=== PATIENT | male | born 1995 | race Caucasian/White ===

== ENCOUNTER 2018-12-11 17:14 | Inpatient (IN) ==
[2018-12-11 19:12] LABS: BASO# 0.02 X1000 (0.0-0.2); BASO% 0.2 % (0.0-0.8); EOS# 0.32 X1000 (0.0-0.7); EOS% 3.5 % (0.0-10.0); HEMATOCRIT 42.8 % (42.0-52.0); HEMOGLOBIN 14.9 g/dL (14.0-18.0); LYMPH% 34.1 % (20.5-51.1); MCH 31.6 PG (27-31); MCHC 34.8 g/dL (33-37); MCV 90.7 FL (81-99); MONO# 0.67 X1000 (0.11-0.59); MONO% 7.4 % (1.7-9.3); MPV 11.1 FL (7.4-10.4); NEUT# 4.98 X1000 (1.4-6.5); NEUT% 54.8 % (42.2-75.2); PLT 242 X1000 (130-400); RBC 4.72 XMIL (4.7-6.1); RDW 12.6 % (11.5-14.5); WBC 9.09 X1000 (4.8-10.8)
[2018-12-11 19:27] LABS: AGAP 13; ALB/GLOB RATIO 2.1; ALBUMIN 4.6 g/dL (3.5-5.0); ALKALINE PHOSPHATASE 97 U/L (32-122); BUN 18 mg/dL (8-22); CALCIUM 9.4 mg/dL (8.8-10.2); CHLORIDE 101 mmol/L (98-107); COSMO 280; CREATININE 0.8 mg/dL (0.7-1.2); ESTIMATED GFR > 60; GLUCOSE 109 mg/dL (70-104); GOT 14 U/L (10-34); GPT 10 U/L (10-44); POTASSIUM 3.7 mmol/L (3.5-5.1); SODIUM 139 mmol/L (136-145); TCO2 25 mmol/L (25-35); TOTAL BILIRUBIN 0.75 mg/dL (0.20-1.00); TOTAL PROTEIN 6.8 g/dL (6.3-8.3)
--- NOTE | 2018-12-11 20:59 | Diag Imaging Result Doc PS360 ---
EXAM: CT HEAD/C-SPINE W/O CONTRAST INDICATION: bilateral paralysis of upper and lower extremities TECHNIQUE: This exam was performed using automated exposure control, adjustment of mA or kV according to patient size, and/or use of iterative reconstruction technique. COMPARISON: None. FINDINGS: Head: There is no definite acute infarct given the limited sensitivity of CT versus MRI. There is no discrete intracranial mass, mass effect, or intracranial hemorrhage. The surrounding soft tissues are essentially unremarkable. The calvaria is intact. C-spine: The central canal appears to be grossly patent. There is no discrete fracture, subluxation, or intrinsic osseous lesion. The surrounding soft tissues are essentially unremarkable. IMPRESSION: 1.No evidence of acute intracranial pathology. 2.No evidence of fracture or other definite acute C-spine injury. Electronically signed by Pramod Villavicencio 12/11/2018 8:57 PM
[2018-12-11] MEDS ORDERED: TORADOL IV ONE (21:11)
[2018-12-11] MEDS ORDERED: VALIUM PO ONE (21:17)
[2018-12-11] MEDS ORDERED: ZOFRAN IV PRN (22:53)
[2018-12-11] MEDS ORDERED: TYLENOL PO PRN (22:53)
[2018-12-12] MEDS: LOVENOX SUBQ SCH ×2 (01:09→22:29)
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
[2018-12-12 08:01] LABS: VITAMIN D 25 HYDROXY 30.2 NG/DL
--- NOTE | 2018-12-12 08:27 | EKG Report ---
Test Performed on : 12/11/2018 6:48:18 PM Test Reason : WEAKNESS Blood Pressure : / mmHG Vent. Rate : 068 BPM Atrial Rate : 068 BPM P-R Int : 000 ms QRS Dur : 108 ms QT Int : 394 ms P-R-T Axes : 000 087 036 degrees QTc Int : 418 ms Accelerated Junctional rhythm. Incomplete right bundle branch block Nonspecific ST and T wave abnormality Abnormal ECG When compared with ECG of 17-MAR-2018 12:17, Junctional rhythm. has replaced Sinus rhythm. Nonspecific T wave abnormality now evident in Lateral leads Unconfirmed Result
--- NOTE | 2018-12-12 14:55 | PROGRESS NOTE ---
DATE: 12/12/2018 SUBJECTIVE: The patient reports mild neck pain. He reports that he is not able to move both lower extremities. He reports that the weakness comes and goes. Not able to tell me for what period of time. He is not able to move toes. He is able to control his bowel movement and bladder. OBJECTIVE: Vital signs: Temperature 97.8, heart rate 72, respiratory rate 18, blood pressure 111/62, O2 saturation 98% on room air. General examination: This is a 23-year-old male lying in bed in no acute distress. HEENT: Head is normocephalic and atraumatic. Neck: No JVD noted. No carotid bruit. No lymphadenopathy. No thyromegaly. Cardiovascular exam: S1, S2 heard. No murmurs, gallops, or rubs. Regular rate and rhythm. Respiratory exam: Clear bilaterally to auscultation. No work of breathing or using accessory muscles. Abdomen: Soft, nontender to palpation. Bowel sounds present. No organomegaly. Extremities: No clubbing, cyanosis, or edema. Peripheral pulses present in both legs. Neurological exam: The patient has 4/5 hmny-xt-nathtzym strength in both upper extremities but lower extremities he reports not able to move. He cannot raise them against gravity or not even drag any of his foot in the bed. He can move his head, shrug his shoulders. LABORATORY DATA: CBC and BMP unremarkable from yesterday. ASSESSMENT AND PLAN: 1. Intermittent lower extremity weakness. According to him, this has been going on for the last few years. He reports had some workup for this problem but it was not possible to find out the reason. The patient does have history of mental illness, depression, and anxiety. I do not know exactly what his diagnosis are. In any case considering this progressive weakness, I prefer to order an MRI of the brain and also lumbosacral MRI too and see what it shows. Neurology has been consulted for further recommendations. 2. Depression and anxiety. Will continue with home medication. 3. Muscle spasm. The patient has been given Toradol and Valium in the ER. Will continue to provide more medication if needed. cc: Wagner Espinal MD
--- NOTE | 2018-12-12 18:22 | PROVIDER DOCUMENTATION ---
This chart was entered by Violet Villavicencio Scribe, acting as scribe for Barbara Reyes MD. HPI-General Adult <SusannePerez OrtizVeto - Last Filed: 12/11/18 22:33> - General Source: patient - History of Present Illness -Gen Adult Nature of Presenting Problems: 23 yom presents to er w/cc pt arrived via [facility] for generalized muscle weakness. pt sts he has had muscle weakness for years but has progressively gotten worse. pt has been able to work but couldn't walk today. pt can't lift bilat arms or legs. pt is able to control BM's and bladder. denies fever, chills and cp. <Barbara Reyes - Last Filed: 12/12/18 18:23> - General Chief Complaint: Weakness Stated Complaint: lower extremity weakness/numbness Time Seen by Provider: 12/11/18 18:27 Allergies/Adverse Reactions: Patient Allergies Allergy/AdvReac Type Severity Reaction Status Date / Time nabumetone [From Relafen] AdvReac Intermediate NAUSEA Verified 05/25/14 20:01 Home Medications: Home Medication List Medication Instructions Recorded Confirmed Last Taken Type Ibuprofen 800 mg PO Q6H PRN PRN #20 tab 07/26/18 Unknown Rx Methocarbamol [Robaxin-750] 750 mg PO BID PRN #20 tab 08/20/18 Unknown Rx Buspirone [Buspar] BID 12/12/18 Unknown History Citalopram [Celexa] 20 mg PO 12/12/18 Unknown History Meloxicam [Mobic] 15 mg PO 12/12/18 Unknown History Review of Systems - Adult - REVIEW OF SYSTEMS - ADULT Constitutional: reports: no symptoms reported. denies: chills, fever Eyes: reports: no symptoms reported Ears, Nose, Mouth & Throat: reports: no symptoms reported Cardiovascular: reports: no symptoms reported. denies: chest pain Respiratory: reports: no symptoms reported Gastrointestinal: reports: no symptoms reported Genitourinary: reports: no symptoms reported Musculoskeletal: reports: see HPI, muscle weakness (generalized). denies: back pain, frequent leg cramps, joint pain Integumentary: reports: no symptoms reported Neurological: reports: no symptoms reported Psychiatric: reports: no symptoms reported Endocrine: reports: no symptoms reported Hematologic/Lymphatic: reports: no symptoms reported Allergic/Immunologic: reports: no symptoms reported All Other Systems: Reviewed and Negative <Barbara Reyes - Last Filed: 12/12/18 18:23> Past History - Adult - PAST MEDICAL HISTORY-ADULT Review of Records: reports: Old Records Reviewed, Nursing Assessment Review, Medications Reviewed, Social history reviewed & non-contributory. Major Childhood Illnesses: reports: denies history Cardiovascular: reports: denies history Respiratory: reports: denies history Gastrointestinal: reports: denies history Obstetrical/Gynecological: reports: denies history Genitourinary: reports: denies history Musculoskeletal: reports: denies history Neurological: reports: denies history Psychiatric: reports: anxiety, depression, other (ADHD) Endocrine/Immune: reports: denies history Other Conditions: reports: denies history - PRIOR SURGERIES/PROCEDURES Surgical/Procedure History: reports: reviewed, not pertinent, other (brown recluse bite) - IMMUNIZATION STATUS Childhood Immunizations: See Nurse Assessment Flu Vaccine: See Nurse Assessment - FAMILY HISTORY Family History: reviewed, not pertinent - SOCIAL HISTORY Smoking: other (former) Substance Use: none/never <Barbara Reyes - Last Filed: 12/12/18 18:23> Physical Exam-General - PHYSICAL EXAM-ADULT Initial Vital Signs Reviewed: Yes - CONSTITUTIONAL General Appearance: alert, mild distress. negative: slow to respond, obtunded, combative - EYES Eyes: PERRL/EOMI, pink conjunctivae - HEAD, EARS, NOSE, MOUTH & THROAT HENMT: normocephalic/atraumatic, moist mucous membranes, normal ENT inspection - NECK Neck: non-tender, full range of motion, supple, normal inspection - RESPIRATORY Respiratory: chest non-tender, lungs clear, normal breath sounds - CARDIOVASCULAR Cardiovascular: normal peripheral pulses, regular rate, rhythm - GASTROINTESTINAL (ABDOMEN) Abdominal Exam: normal bowel sounds, non tender, soft - MUSCULOSKELETAL Back Exam: normal inspection, no CVA tenderness, no vertebral tenderness Extremity: non-tender, other (pt cannot lift bilat arms or legs. 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 negative: normal range of motion, normal inspection, calf tenderness, deformity, pulse deficit Peripheral Pulses: radial (R): 2+, radial (L): 2+ - SKIN Integumentary: normal color, normal turgor, warm/dry - NEUROLOGIC Neurologic: grossly normal, no motor/sensory deficits - PSYCHIATRIC Psych/Mental Status: normal mood/affect, normal thought content, normal thought process, oriented x 3 <Barbara Reyes - Last Filed: 12/12/18 18:23> Progress - PLAN OF CARE/RESULTS Progress/Plan/Lab Results: Vital Signs - 8 hr 12/11/18 18:14 12/11/18 18:39 12/11/18 18:40 Temperature 97.9 F Pulse Rate 78 Respiratory Rate 18 Blood Pressure 133/90 135/84 O2 Sat by Pulse Oximetry 96 97 97 12/11/18 18:50 12/11/18 18:55 12/11/18 19:00 Temperature Pulse Rate 72 74 Respiratory Rate 19 21 Blood Pressure 136/87 O2 Sat by Pulse Oximetry 99 100 98 12/11/18 19:10 12/11/18 19:20 12/11/18 19:30 Temperature Pulse Rate 70 84 83 Respiratory Rate 18 15 19 Blood Pressure O2 Sat by Pulse Oximetry 99 100 99 12/11/18 19:31 12/11/18 19:40 12/11/18 19:50 Temperature Pulse Rate 73 76 73 Respiratory Rate 23 16 17 Blood Pressure 128/83 O2 Sat by Pulse Oximetry 100 99 100 12/11/18 20:00 12/11/18 20:01 12/11/18 20:10 Temperature Pulse Rate 71 74 71 Respiratory Rate 24 16 12 Blood Pressure 131/84 O2 Sat by Pulse Oximetry 97 99 100 12/11/18 20:29 12/11/18 20:30 Temperature Pulse Rate 79 81 Respiratory Rate 19 12 Blood Pressure O2 Sat by Pulse Oximetry 100 99 Laboratory Results - last 24 hr 12/11/18 12/11/18 18:54 18:54 WBC 9.09 RBC 4.72 Hgb 14.9 Hct 42.8 MCV 90.7 MCH 31.6 H MCHC 34.8 RDW Std Deviation 12.6 Plt Count 242 MPV 11.1 H Immature Gran % (Auto) 0.0 Neut % (Auto) 54.8 Lymph % (Auto) 34.1 Mower % (Auto) 7.4 Eos % (Auto) 3.5 Baso % (Auto) 0.2 Immature Gran # (Auto) 0.00 Neut # (Auto) 4.98 Lymph # (Auto) 3.10 Mower # (Auto) 0.67 H Eos # (Auto) 0.32 Baso # (Auto) 0.02 Sodium 139 Potassium 3.7 Chloride 101 Carbon Dioxide 25 Anion Gap 13 BUN 18 Creatinine 0.8 Estimated GFR/1.73 m2 > 60 BUN/Creatinine Ratio 23 Glucose 109 H Calculated Osmolality 280 Calcium 9.4 Total Bilirubin 0.75 AST 14 ALT 10 Alkaline Phosphatase 97 Total Protein 6.8 Albumin 4.6 Globulin 2.2 Albumin/Globulin Ratio 2.1 Orders Category Date Time Status Saline Loc NOW Care 12/11/18 18:28 Active Saline Loc NOW Care 12/11/18 18:[address] HEAD/C-SPINE W/O CONTRAST [CT] Stat Exams 12/11/18 18:27 Completed CBC WITH DIFF [HEME] Stat Lab 12/11/18 18:54 Completed COMPREHENSIVE METABOLIC PANEL [CHEM] Stat Lab 12/11/18 18:54 Completed Ketorolac [Toradol] Med 12/11/18 21:11 Discontinued 30 mg IV NOW ONE Result Diagrams: 12/11/18 18:54 12/11/18 18:54 - REASSESSMENT Reassessment #1 Status: improving (muscle spasm of neck improved. Patient reports not being able to move his legs or arms. On exam strenthg 2/5, sensation intact. 2+ bilat Pat reflexes. Discussed with hospitalist with plan for admission.) <Perez Skinner - Last Filed: 12/11/18 22:33> - PLAN OF CARE/RESULTS Progress/Plan/Lab Results: Vital Signs - 8 hr 12/11/18 18:14 Temperature 97.9 F Pulse Rate 78 Respiratory Rate 18 Blood Pressure 133/90 O2 Sat by Pulse Oximetry 96 Result Diagrams: 12/11/18 18:54 12/11/18 18:54 - EKG 1 Time of EKG reading by physician:: 18:48 EKG Read and Signed by:: Barbara Reyes EKG Interpretation (*Must complete 3 of following elements*): Abnormal Rate: 68 Rhythm: Accelerated Junctional rhythm QRS: RBB (incomplete) ST Wave: non-specific ST changes (nonspecific st and t wave abnormality) - CHANGE OF SHIFT REPORT (ED Provider) 1 Report Given and Care Transferred to:: Dr Skinner Time of Transfer: 19:00 Items Pending: Labs, CT/MRI Results <Barbara Reyes - Last Filed: 12/12/18 18:23> Departure - Departure Date of Disposition Decision: 12/11/18 Time of Disposition Decision: 22:35 Certified Medical Emergency: Emergent - Critical Care Note This patient required my direct & personal management of CC.: No <Perez Skinner - Last Filed: 12/11/18 22:33> - Departure Certified Medical Emergency: Emergent - Critical Care Note This patient required my direct & personal management of CC.: No <Barbara Reyes - Last Filed: 12/12/18 18:23> - Departure DIAGNOSIS: Weakness, Muscle spasm Disposition: ADMITTED INPATIENT 09 Condition: Good Attestation - Physician/ ARLEN Attestation Patient care was provided by Advanced Practice Provider:: No The physician spent face to face time with patient:: Yes Advanced Practice Provider documentation review:: Supervising physician onsite and consulted in the evaluation and care of this patient. The physician did have a face to face encounter with the patient. <Barbara Reyes - Last Filed: 12/12/18 18:23> This chart was documented by the indicated scribe, (Violet Villavicencio Scribe) and accurately reflects the services I performed and decisions made by me, Barbara Reyes MD, as attested by the provider's signature.
--- NOTE | 2018-12-12 19:44 | Diag Imaging Result Doc PS360 ---
EXAM: MRI BRAIN W/WO CONTRAST 12/12/2018 HISTORY: LE weakness TECHNIQUE: T1 sagittal, axial and post gadolinium-enhanced axial with coronal reformation, axial T2, FLAIR, DWI and coronal gradient echo. COMMENT: There are mucus retention cysts in both maxillary sinuses. There is no evidence of mass effect, bleed, or abnormal extra-axial fluid collection. There is no evidence of restricted diffusion. The post gadolinium images are somewhat degraded by patient motion. There is no evidence of abnormal gadolinium enhancement. IMPRESSION: No evidence of acute intracranial disease. Electronically signed by Maury Grossman 12/12/2018 7:42 PM
--- NOTE | 2018-12-12 19:48 | Diag Imaging Result Doc PS360 ---
EXAM: MRI LUMBAR SPINE W/WO CONTRAST 12/12/2018 HISTORY: LE Weakness TECHNIQUE: T1-T2 and FLAIR sagittal, post gadolinium fat sat sagittal T1 and axial T1. COMMENT: There is no evidence of intrathecal mass or signal abnormality or abnormal gadolinium enhancement. At the T12-L1 level there is no evidence of spinal or foraminal stenosis. At L1-2 there is no spinal or foraminal stenosis. At L2-3 there is no spinal or foraminal stenosis. At L3-4 there is no evidence of spinal or foraminal stenosis. At L4-5 there is disc desiccation and posterior disc bulge with central disc protrusion. The foramina are patent and there is no significant spinal stenosis. At L5-S1 there is slight disc bulge without evidence of spinal or foraminal stenosis. IMPRESSION: Degenerative disc disease particularly at the L4-5 level with protruded nucleus pulposus. Electronically signed by Maury Grossman 12/12/2018 7:46 PM
[2018-12-12 22:09] LABS: URINE SOURCE CLEAN CATCH
[2018-12-12 22:53] LABS: BILIRUBIN URINE NEGATIVE (NEGATIVE); BLOOD URINE LARGE (NEGATIVE); COLOR YELLOW; GLUCOSE URINE NEGATIVE (NEGATIVE); KETONE URINE NEGATIVE (NEGATIVE); LEUKOCYTES URINE NEGATIVE (NEGATIVE); NITRITE URINE NEGATIVE (NEGATIVE); PROTEIN URINE TRACE mg/dL (NEGATIVE); SP GRAVITY URINE 1.033; TURBIDITY URINE CLEAR (CLEAR); UROBILINOGEN URINE 2 mg/dL (NORMAL)
[2018-12-12 22:54] LABS: UR EPITHELIAL CELLS <10 /HPF (<10); URINE BACTERIA NEGATIVE /HPF; URINE RBC TNTC /HPF (<10); URINE WBC <10 /HPF (<10)
[2018-12-12 22:58] LABS: UR AMPHETAMINES QUAL PRESUMPTIVE POSITIVE (NONE DETECT); UR BARBITUATES QUAL NONE DETECTED (NONE DETECT); UR BENZODIAZEPIN QUAL PRESUMPTIVE POSITIVE (NONE DETECT); UR COCAINE QUAL NONE DETECTED (NONE DETECT); UR OPIATES QUAL NONE DETECTED (NONE DETECT)
[2018-12-12 22:59] LABS: UR CANNABINOIDS QUAL PRESUMPTIVE POSITIVE (NONE DETECT); UR METHADONE QUAL NONE DETECTED (NONE DETECT); UR OXYCODONE QUAL NONE DETECTED (NONE DETECT); UR PCP QUAL NONE DETECTED (NONE DETECT)
[2018-12-13 07:16] LABS: BASO# 0.03 X1000 (0.0-0.2); BASO% 0.4 % (0.0-0.8); EOS# 0.43 X1000 (0.0-0.7); EOS% 5.1 % (0.0-10.0); HEMATOCRIT 39.8 % (42.0-52.0); HEMOGLOBIN 13.4 g/dL (14.0-18.0); IMM GRAN# 0.02 X1000 (0.0-0.04); IMM GRAN% 0.2 % (0.0-0.5); LYMPH# 2.64 X1000 (1.2-3.4); LYMPH% 31.6 % (20.5-51.1); MCHC 33.7 g/dL (33-37); MCV 92.1 FL (81-99); MONO# 0.52 X1000 (0.11-0.59); MONO% 6.2 % (1.7-9.3); MPV 11.1 FL (7.4-10.4); NEUT# 4.72 X1000 (1.4-6.5); NEUT% 56.5 % (42.2-75.2); PLT 202 X1000 (130-400); RBC 4.32 XMIL (4.7-6.1); RDW 12.6 % (11.5-14.5); WBC 8.36 X1000 (4.8-10.8)
[2018-12-13 07:31] LABS: AGAP 9; ALB/GLOB RATIO 1.9; ALBUMIN 3.7 g/dL (3.5-5.0); ALKALINE PHOSPHATASE 78 U/L (32-122); BUN 15 mg/dL (8-22); CALCIUM 8.6 mg/dL (8.8-10.2); CHLORIDE 106 mmol/L (98-107); COSMO 284; CREATININE 0.8 mg/dL (0.7-1.2); ESTIMATED GFR > 60; GLUCOSE 105 mg/dL (70-104); GOT 10 U/L (10-34); GPT 8 U/L (10-44); POTASSIUM 3.5 mmol/L (3.5-5.1); SODIUM 142 mmol/L (136-145); TCO2 27 mmol/L (25-35); TOTAL BILIRUBIN 0.19 mg/dL (0.20-1.00); TOTAL PROTEIN 5.6 g/dL (6.3-8.3)
--- NOTE | 2018-12-13 15:23 | CONSULTATION ---
DATE OF CONSULTATION: 12/13/2018 HISTORY: Mr. Hsieh is 23 years old, and he reports weakness in the legs. His history provided to me today varies a little bit with what is recorded in the chart. There was also some inconsistency on his responses to me with repeat questioning today. He reports having a sense of being weak all over, particularly weak in the legs episodically for the last few years, at as long as 3-4 years. These episodes have tended to be 30-60 minutes. At times, he reports a sense that he cannot move either leg. He generally rests, seated or reclined, until the episode resolves. He fell once while walking on a road, but reports he was able to walk to the side of the road before falling. These episodes are not associated with altered consciousness, altered awareness, memory gap, incontinence, significant back pain, limb pain, or involuntary movement. He reports these episodes have been more frequent in recent weeks, as often as every few days. He got weak all over yesterday, and continues weak in the legs today. He reports this episode is similar to prior spells except for the duration. Episodes are not associated with difficulty chewing or swallowing, difficulty speaking, or definite vision disturbance. He thinks he might have had some double vision at times, but that does not correlate with his other weakness. He reports extensive workup in the past, but he is not able to provide details. He has had imaging of several levels including the cervical spine, and reports some loss of normal curvature as the only finding. He has had some lab work and believes everything checked out okay. He has not had EMG, and he does not recall seeing Neurology or Rheumatology. He reports no family history of similar problems or of other neuromuscular problem. Workup here includes lab showing nothing remarkable. Last CK reported in this computer was 121 on 03/17/2018. He has been afebrile. Urine drug screen was positive for amphetamine, benzodiazepine, and cannabis. He reports using "speed" to combat fatigue and plans to stop that. He denies using "spice" and believes he had episodes of weakness prior to beginning use of illegal substances. Imaging this admission includes noncontrast CT of the head unremarkable, noncontrast CT of the neck unremarkable. Lumbar MRI shows degenerative changes, and small central L4-5 HNP without definite nerve root impingement. Brain MRI unremarkable. PHYSICAL EXAMINATION: On exam, Mr. Koroma is awake, alert, and attentive. He seems appropriate. Speech is not dysarthric. Language function is intact. Head and neck are unremarkable. Neck muscle power is normal. Straight leg raising is negative bilaterally. There is no paraspinal spasm. Hands and feet are warm. Extraocular movements are full. There is no significant nystagmus. There is no ptosis. Facial motility is good. Shoulder shrug is good. Tongue is midline. Palate is midline. Visual joel are full tested grossly by confrontational finger counting. He did well on [id number] testing bilaterally. He has some fluctuating effort, but was able to demonstrate good power in the muscles in the arms. In the legs, there was also some fluctuation in effort and variable movement demonstrated. He demonstrated at least 2/5 power in the iliopsoas, 3/5 in the anterior tibialis and gastrocnemius. Muscle tone is symmetric in the legs. Reflexes are 1+ at the knees and ankles. Plantar response is flexor bilaterally. Proprioception is good at the great toe MTP joint bilaterally. He reports good pinprick and light touch appreciation symmetrically over the feet and legs. I did not test his gait. IMPRESSION: Subjective weakness in the legs. I do not find a definite objective neurologic or neuromuscular deficit. I will order CK and followup. We might consider EMG and screening for heavy metal exposure. If there are records available from prior neuromuscular workup, review of those might be helpful. Thanks for asking Neurology to see Mr. Hsieh. cc: MD JANETTE Balderas III
--- NOTE | 2018-12-13 20:47 | PROGRESS NOTE ---
DATE: 12/13/2018 INTERVAL HISTORY: His lumbar spine MRI, brain MRI did not have any acute pathology. He did have protrusion of nucleus pulposus at L4-L5 level, without any spinal canal stenosis or spinal foraminal narrowing. VITAL SIGNS: Temperature 97.8 degrees, pulse 60, respiratory rate of 18 per minute, blood pressure 114/67, saturating 99% on room air. SUBJECTIVE: Patient's mother is at bedside. Patient appears irritable. Does not answer questions appropriately and does not follow commands all the time. He does not comply with physical examination completely, saying that everyone performed the same tests again and again. I explained to him about need for proper neurological examination. However, he does not appear very motivated. PHYSICAL EXAMINATION: General: Does not appear in any acute distress. Oral Cavity: Moist; however, examination is limited as he does not open his mouth completely. Lungs: Air entry bilaterally equal. No wheeze, rhonchi, or crackles. Heart: S1 normal. No murmur or gallop. Abdomen: Soft, nontender. Extremities: No lower extremity edema. Neurological: He is alert and oriented x3; however, he does not follow commands. He is spontaneously moving bilateral upper extremities. He is flexing bilateral lower extremities. LABORATORY DATA: CBC and BMP unremarkable from yesterday. ASSESSMENT AND PLAN: 1. Intermittent lower extremity weakness. Ongoing for years. I will try and obtain records from his outpatient provider. MRI brain, L spine, CT scan C spine are unremarkable. Neurology considering EMG NCS. 2. Depression and anxiety. Resume home medication of buspirone. 3. Muscle spasm. The patient has been given Toradol and Valium in the ER. Will continue to provide more medication if needed. cc: Tye Madsen MD [facility]
[2018-12-13] MEDS: BUSPAR PO SCH (21:58)
[2018-12-13] MEDS: CELEXA PO SCH (21:58)
[2018-12-13] MEDS: LOVENOX SUBQ SCH (23:28)
[2018-12-14] MEDS: CELEXA PO SCH (09:38)
[2018-12-14] MEDS: BUSPAR PO SCH ×2 (09:38→20:57)
[2018-12-14] MEDS: MOBIC PO SCH (09:39)
--- NOTE | 2018-12-14 19:02 | PROGRESS NOTE ---
DATE: 12/14/2018 INTERVAL HISTORY: No acute events overnight. SUBJECTIVE: Patient is feeling fine. Denies any new complaints except that he is still very weak in the bilateral lower extremities. He states that he is able to come out of bed using his arms and transfer immediately himself from bed to the commode. Electromyogram and nerve conduction study have been performed. The results are pending. VITAL SIGNS: Temperature 97 degrees, pulse 55, respiratory rate 16, blood pressure 123/59, saturating 98% on room air. PHYSICAL EXAMINATION: General: He does not appear in any acute distress. Oral cavity is moist. He does have some missing teeth. Lungs: Air entry bilaterally equal. No wheeze, rhonchi, or crackles. Heart: S1, S2 normal. No murmur, rub, or gallop. Abdomen: Soft, nontender. Neurologic: He is alert and oriented x3. Answers simple questions and follows simple commands. His sensations are intact in all extremities. He does not have any focal sensory deficit. His power is 5/5 in bilateral upper extremities. He has intact power on bilateral feet on flexion and extension at ankle joint with power 5/5 bilaterally; however, he does not have any voluntary movement at bilateral knee joints with power 0/5. He also appears to have power 0/5 on bilateral hips currently. ASSESSMENT: 1. Intermittent lower extremity weakness. 2. Depression and anxiety. 3. Muscle spasms. PLAN: 1. I will follow up with formal electromyogram and nerve conduction study results. 2. Will continue him on his anxiety medication, buspirone and citalopram, and also meloxicam which he takes for chronic pain. 3. The differential diagnosis currently includes very rare neuromuscular disorder, the likelihood of which is less; however, it could also include a conversion disorder. I will follow up with final read of results and accordingly disposition will be decided. cc: Tye Madsen MD
[2018-12-14] MEDS: LOVENOX SUBQ SCH (23:19)
[2018-12-15] MEDS: BUSPAR PO SCH ×2 (08:33→20:27)
[2018-12-15] MEDS: MOBIC PO SCH (08:33)
[2018-12-15] MEDS: CELEXA PO SCH (08:33)
--- NOTE | 2018-12-15 11:14 | PROGRESS NOTE ---
DATE: 12/14/2018 SUBJECTIVE: Mr. Hsieh reports being able to move his right leg a little bit, still not able to move the left leg. He does not report any new weakness in the arm. He has not lost bowel or bladder control. There has not been a sensory deficit. He reports some weight loss, but he cannot quantify amount or time frame. Again, he and mother confirm there is no family history of neuromuscular problem. The EMG and nerve conduction study today shows nothing remarkable. Nerve conduction is completely normal. The EMG findings are most consistent with poor and inconsistent effort. There was no definite abnormality on the EMG. CK level is normal. Sedimentation rate is 1. I do not have a definite neurologic or neuromuscular diagnosis. I hope he will continue to improve and recover to baseline. Referral to a tertiary care Neuromuscular Clinic might be considered if his complaints persist. Muscle biopsy could be considered here, but report likely would be more valid if obtained through a Neuromuscular Clinic. I will be glad to see Mr. Hsieh again inpatient or outpatient if needed. Thanks for asking Neurology to see him. cc: MD JANETTE Balderas III
[2018-12-15] MEDS ORDERED: MOBIC PO PRN (13:04)
--- NOTE | 2018-12-15 13:50 | PROGRESS NOTE ---
DATE: 12/15/2018 INTERVAL HISTORY: The patient underwent electromyogram and nerve conduction yesterday. According to the Neurology report, most of the components of the nerve conduction study and EMG where negative. However, when he was supposed to contract muscles voluntarily, he did not cooperate to get that portion of muscle action potentials. SUBJECTIVE: Patient states he is feeling better, but denies any new complaints. He states he is still worried about standing up. However, when I entered the room, he was sleeping on his side. When I woke him up, he was able to move his leg and from lateral decubitus position he was able to lie down supine, and then when I asked him to sit up, he was able to sit up. When I ask him to lift his leg, he states he cannot. VITALS: Temperature 98.1 degrees, pulse 65, respiratory rate 18, blood pressure 127/66, saturating 100% on room air. PHYSICAL EXAMINATION: General: Does not appear in acute distress. HEENT: Oral cavity is moist. Respiratory: Air entry bilaterally equal. No wheeze, rhonchi, crackles. Cardiovascular: S1, S2 normal. No murmur or gallop. Abdomen: Soft, nontender. Extremities: No lower extremity edema. Neurologic: He is alert. Oriented x3. He has power 5/5 bilateral upper extremities. Bilateral lower extremities: He has inconsistent responses. He is able to wiggle his toes. He is able to flex his knees to some extent. However, when I ask him to raise both legs above ground level, he is not able to do that. LABS: No new labs today. ASSESSMENT: 1. Intermittent lower extremity weakness. 2. Depression and anxiety. 3. Muscle spasm. 4. Polysubstance abuse. PLAN: There is no definitive pathology identified explaining his intermittent lower extremity weakness. There could be a component of not moving extremities voluntarily or a component of anxiety as well. I will have physical therapy come by to evaluate him. If his strength does not come back Monday, my plan is to try and reach out to [facility] in [facility], and see if the patient can be transferred over there for muscle biopsy and further investigation. Plan of care discussed with the patient and all of his questions have been answered. I am continuing his home medication for anxiety, including risperidone and citalopram. cc: Tye Madsen MD
[2018-12-15] MEDS: LOVENOX SUBQ SCH (23:25)
[2018-12-16] MEDS: BUSPAR PO SCH ×2 (08:42→21:54)
[2018-12-16] MEDS: CELEXA PO SCH (08:43)
--- NOTE | 2018-12-16 16:09 | PROGRESS NOTE ---
DATE: 12/16/2018 SUBJECTIVE: Mr. Hsieh overnight, no acute events. He feels the same. Still not able to move his lower extremities. He says physical therapy came by, but he was just not able to stand up on his legs. Mother is at bedside. OBJECTIVE: Vitals: Temperature 98.3 degrees, pulse 65, respiratory rate 18, blood pressure 132/75, saturating 98% on room air. General: He does not appear in any acute distress. Oral cavity is moist. Lungs: Air entry bilaterally equal. No wheeze, rhonchi. Cardiovascular: S1, S2 normal. No murmur or gallop. Abdomen: Soft, nontender. Extremities: No lower extremity edema. Neurologic: He is alert and oriented x3. He has 5/5 bilateral upper extremity strength, and he is able to maintain his posture on his trunk. He has 5/5 strength in bilateral dorsiflexion and plantarflexion at the ankle joint. He is not able to flex or extend knee or flex or extend his hips. He is not able to sit. He is not able to stand up on his own. LABORATORY DATA: No new labs today. ASSESSMENT: 1. Intermittent lower extremity weakness. 2. Depression, anxiety. 3. Muscle spasm. 4. Polysubstance abuse. 5. History of multiple injuries including neck injury while playing football at the age of 8. PLAN: 1. Plan continue his home buspirone, citalopram for history of anxiety. I will give him meloxicam as needed for muscle spasms or back pain. 2. Disposition. I will try and get in touch with [facility] to see if he could be transferred to [facility] facility. 3. Plan of care discussed with the patient and his mother. All of their questions have been answered. He may need muscle biopsy if his weakness is persistent tomorrow at [facility]. cc: Tye Madsen MD
[2018-12-16] MEDS: LOVENOX SUBQ SCH (21:54)
[2018-12-17] MEDS: LOVENOX SUBQ SCH (02:26)
[2018-12-17] MEDS: BUSPAR PO SCH (08:59)
[2018-12-17] MEDS: CELEXA PO SCH (08:59)
--- NOTE | 2018-12-17 16:22 | DISCHARGE SUMMARY ---
ADMISSION DATE: 12/11/2018 DISCHARGE DATE: 12/17/2018 DISCHARGE DISPOSITION: Likely [facility]. DISCHARGE CONDITION: The patient's vitals are stable. He is alert and oriented x3. He is still not able to move bilateral lower extremities. DISCHARGE DIAGNOSES: 1. Bilateral lower extremity paralysis. 2. Anxiety. 3. Substance abuse. DISCHARGE MEDICATIONS: He is on buspirone 10 mg b.i.d., citalopram 20 mg daily, meloxicam 50 mg daily as needed for back pain, tinzaparin 40 mg subcutaneously for DVT prophylaxis. OTHER DIAGNOSES: 1. History of anxiety. 2. History of muscle spasm. 3. History of head and neck injury when [age] years old while playing football. VITALS AT THE TIME OF DISCHARGE: Temperature 97.5, pulse 71, respiratory rate 20, blood pressure 130/70, saturating 98% on room air. PHYSICAL EXAMINATION: General: No pallor, cyanosis, clubbing, or icterus. He is not in any acute distress. Oral cavity - he has poor dentition. No pharyngeal congestion or tonsillar exudate. No cervical lymphadenopathy. Air entry bilaterally equal. No wheeze, rhonchi, or crackles. S1, S2 normal. No murmur, rub, or gallop. Abdomen: Soft, nontender. No lower extremity edema. Neurologic: He is alert and oriented x3. Cranial nerve examination: No facial asymmetry. He is able to protrude his tongue. Speech and cough appear normal. He is able to shrug his shoulders. He is able to eat normally. Sensory: He has intact sensations to touch and intact sensation to painful stimuli, bilateral upper and lower extremities. Motor: Normal tone and power bilateral upper extremities and trunk. Power 5/5 on bilateral ankle joints on dorsiflexion and plantar flexion of feet. Power of 1/5 on bilateral knee flexion and extension as well as hip flexion and extension. Reflexes: 1+ bilaterally. SIGNIFICANT LABS DURING HOSPITAL ADMISSION AND DISCHARGE: Hemoglobin 13.4, WBC 8.3, platelet 202,000. BUN 15, creatinine 0.8, blood glucose 105, calcium 8.6, total bilirubin 0.19, AST 10, ALT 8, total protein 5.6. Vitamin B12 499. Vitamin D 30. Folate 8.5. TSH 0.44. Urine protein trace. Large urine blood with numerous RBCs. Urine toxicology positive for amphetamines, benzodiazepines, and cannabinoids. SIGNIFICANT IMAGING DURING HOSPITAL ADMISSION: Head/cervical spine CT did not have any evidence of acute intracranial pathology. No evidence of flexure or other definite acute cervical spine injury. The surrounding soft tissues were essentially unremarkable. The calvaria was intact. 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 No evidence of mass effect, bleed, or abnormal extraaxial fluid collection. No evidence of restricted diffusion. No evidence of abnormal gadolinium enhancement. Lumbar spine MRI on 12/12/2018 had degenerative disc disease, particularly at L4-L5 level with protruding nucleus pulposus. The foramina were patent and there was no significant spinal stenosis. HOSPITAL COURSE SUMMARY: Mr. Hsieh is a 23-year-old man with past history of anxiety who came in with episode of bilateral upper and lower extremity paralysis which started about more than six hours duration. Apparently, the patient was walking on the road and suddenly he felt like he started feeling weak in bilateral lower extremities and he would fall down, so he sat down at the edge of the road and then his family brought him to the emergency room since his weakness did not resolve, even after a few hours. Apparently, the patient has had these episodes since about four years. These episodes come without any obvious identifiable trigger such as anxiety, stress, sleep, or insomnia. They often times involve upper extremity or lower extremity unilateral or bilateral, however most of the time they are bilateral lower extremities. They usually last for about 20 to 30 minutes and go away without any intervention. His last such episode was about 15 days prior to current admission. He has not had any inpatient workup. However, he was following up with his regular doctor for muscle spasms. While inside the hospital his upper extremity weakness gradually improved overnight. However, his lower extremity weakness persisted. He was not able to stand up despite help from Physical Therapy on his own. During hospital admission his bilateral feet strength recovered with improvement in flexion and extension. However, knee and hip strength did not recover. The MRI of the brain and lumbar spine images were unremarkable, so was nerve conduction study and electromyogram. Since the patient's weakness did not improve, there was a concern of a unusual neuromuscular disorder or a conversion disorder. The patient's antianxiety medications were continued during hospital admission and [facility] was consulted, if the patient would need further evaluation for any neuromuscular disorder and they have accepted the patient. The patient will be transferred over there. TIME SPENT: More than 30 minutes are spent in preparing this discharge summary. cc: Tye Madsen MD [facility]
[2018-12-17 20:02] VITALS: BP 124/75
--- NOTE | 2018-12-18 13:04 | PROGRESS NOTE ---
DATE: 12/17/2018 SUBJECTIVE: Mr. Hsieh reports noticing for very brief (less than 1 minute?) periods of time over the weekend that he was able to move one leg sometimes, and the other leg sometimes. He reports not being able to move both legs at the same time. Still, there has been no incontinence. He has not had difficulty using his arms. OBJECTIVE: On exam, he has good power distally in the legs today. He had inconsistent effort with proximal leg muscle testing. He was able to raise his right leg, getting heel clear of the sheets. He was less attentive on testing the left leg. Limb tone remained symmetric. Reflexes are 2+ at the knees and ankles symmetrically. Straight leg raising is negative bilaterally. Feet are warm. ASSESSMENT: Subjective bilateral leg weakness persists. He is clearly demonstrating better power today than a few days ago. Still, I do not find a definite objective neuromuscular deficit. Workup has all been unremarkable. I told him frankly that I do not have a neuromuscular diagnosis. I told him I am very encouraged to see the leg movement today, and I hope he will continue to improve rapidly and be walking soon. I encouraged him to be careful with gait and activities. As discussed with Dr. Madsen, neuromuscular clinic referral would be reasonable if his complaints persist. Also, I will be glad to see him as an outpatient if needed. Thank you for asking Neurology to see Mr. Hsieh. cc: MD JANETTE Balderas III
--- NOTE | 2018-12-18 21:59 | PROGRESS NOTE ---
DATE: 12/17/2018 INTERVAL HISTORY: No acute events. SUBJECTIVE: The patient feels the same. He is still not able to move his lower extremities. The patient's mother is at the bedside. We discussed about physical exam findings, my discussion with neurology and also consulting [facility]. OBJECTIVE: Vitals: Temperature 97.9, pulse 64, respirations 16, blood pressure 120/58, saturating 99% on room air. General: Does not appear in any acute distress. HEENT: Oral cavity is moist. Lungs: Air entry bilateral. No wheezing or rhonchi. Abdomen: Normal. No organomegaly. Soft, nontender. Extremities: No lower extremity edema. Neurologic: He is alert and oriented x3. He does not have any facial asymmetry. His speech appears normal. He has intact cough. He does not have visual disturbance. His sensation is intact to crude touch and painful stimuli in bilateral upper and bilateral lower extremities as well as trunk. His reflexes are 2+ in bilateral upper and lower extremities. Motor examination: Power is 5/5 on bilateral upper extremities. Power is 4/5 on bilateral ankle joint with dorsiflexion as well as plantar flexion. His power is 1/5 at bilateral knee joints on flexion and extension and 1/5 in hip flexion and extension. He is not able to come out of bed using his legs. LABORATORIES: No CBC or BMP today. ASSESSMENT AND PLAN: 1. Intermittent lower extremity weakness. 2. Depression and anxiety. 3. Muscle spasm. 4. Polysubstance abuse. 5. History of neck injury. PLANS: The patient says that these episodes started about 4 years ago and he has had about 20 such episodes. It may involve upper extremities or lower extremities. Mostly involves the lower extremities. Sometimes unilaterally, sometimes bilaterally. He has not noticed any association with any particular situation, anxiety, or stress. The previous episodes used to last only for about 20 or 30 minutes or at maximum an hour and go away without any intervention. I will consult the [facility] as per my discussion with neurology for further evaluation and management. cc: Tye Madsen MD
== END 2018-12-17 22:30 | disposition short-term general hospital (02) | DRG 556 ==
LOC: SUPCPDRO → ED 17:14 → 3N 17:14 → SUATTDRO 23:24 → OBSVTOIN 23:24
PROVIDERS: ATTEND Internal Medicine
CPT/HCPCS: 70450; 70553; 72125; 72158; 80053; 80101; 80301; 80307; 80324; 80345; 80346; 80353; 80358; 80361; 80365; 81001; 82306; 82550; 82607; 82746; 83735; 83992; 84443; 85025; 85651; 93005; 96374; 97110; 97162; 97530; 99285; A9270; A9579; G0431; G0434; G0479; G0480; J1650; J1885